=== PATIENT | female | born 1930 | race Caucasian/White ===

== ENCOUNTER 2017-09-10 10:15 | Inpatient (IN) ==
--- NOTE | 2017-09-10 10:34 | Emergency Department Note ---
Weakness HPI - General Chief complaint: Weakness Stated complaint: weakness, fatigue Time Seen by Provider: 09/10/17 10:26 Source: patient Mode of arrival: ambulatory Limitations: no limitations - History of Present Illness HPI Narrative: Approximately 1 hour prior to patient's arrival I received a phone call from patient's primary care provider, Dr. Escamilla, who reported that patient recently had received renal stents for kidney stones. He saw her last evening and did some workup. She was being seen for general sense of weakness and fatigue going on for days and mild shortness of breath. Creatinine became elevated at 2.2 with a in the ejection fraction of 20% where her normal was over 50%. BUN is 56. D-dimer was over 20. He reports that she has a previous history of pulmonary embolus that was after a surgery. She has some short of breath now. She recently had renal stents for stones. He is sending her here for to be seen. REVIEW OF SYSTEMS: Denies fever, chills, sweats Denies chest pain, palpitations Denies cough. Has had a little wheeze occasionally but had a recent pneumonia. Not much phlegm. Denies hemoptysis. Denies abdominal pain, nausea, vomiting. Denies back pain. Does have some low back achiness that is somewhat new. Denies rashes. Denies headaches. Is some lightheaded when gets up. Denies imbalance. Denies anxiety. Denies depression. - Related Data Home Medications Medication Instructions Recorded Confirmed Colesevelam HCl [Welchol] 625 mg PO TID 12/23/14 12/23/14 Unknown For Diabetic 08/17/17 Vitamin B-12 08/17/17 Citalopram [Celexa] 20 mg PO DAILY 09/10/17 09/10/17 Lovastatin 40 mg PO DAILY 09/10/17 09/10/17 Pioglitazone [Actos] 15 mg PO DAILY 09/10/17 09/10/17 Allergies Allergy/AdvReac Type Severity Reaction Status Date / Time ketorolac [From Toradol] Allergy Mild Hives Verified 09/10/17 10:19 Past Medical History - Past Medical History Medical history: Reports: DM, hyperlipidemia, hypertension, kidney stones, pulmonary embolus (Post surgery), other (Pneumonia. Glaucoma. Renal sclerosis. 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 Denies: marijuana Physical Exam Limitations: no limitations General appearance: alert, in no apparent distress, malaise (Mild) Head: atraumatic, normocephalic Eye: Present: EOMI ENT: mucous membranes dry Neck: Present: trachea midline. Absent: lymphadenopathy, thyromegaly Respiratory: Present: normal lung sounds bilaterally. Absent: respiratory distress, wheezes, stridor, accessory muscle use, prolonged expiratory phase Cardiovascular: Present: regular rate, normal rhythm. Absent: systolic murmur, diastolic murmur Abdominal: Present: soft. Absent: distention, tenderness, guarding, rebound, rigidity, organomegaly, mass Extremities: Absent: pedal edema, pretibial edema, calf tenderness Back: Absent: CVA tenderness (R), CVA tenderness (L) Neurological: Present: alert, oriented X3 Psychiatric: Present: normal affect, flat affect (Mild) Skin: Present: warm, dry Course Vital Signs Temperature 97.2 F 09/10/17 10:17 Pulse Rate 72 09/10/17 10:17 Respiratory Rate 14 09/10/17 10:17 Blood Pressure 104/67 09/10/17 10:17 Pulse Oximetry (%) 96 09/10/17 10:17 Temperature 97.2 F 09/10/17 10:17 Pulse Rate 72 09/10/17 14:31 Respiratory Rate 17 09/10/17 14:31 Blood Pressure 128/76 09/10/17 14:31 Pulse Oximetry (%) 99 09/10/17 14:31 Weakness - MDM Narrative Medical decision making narrative: Repeat labs demonstrate the creatinine to be 2.0. The BUN was 54. Calcium mildly elevated at 11.4. Bicarb was 20 anion gap of 15. D-dimer previously was 20. ECG demonstrates no acute ACS findings and troponin was negative. I discussed case with Dr. Jimenez who kindly accepts this admission for IV hydration, anticoagulation, and follow-up on her kidneys. We discussed that he would likely order an ultrasound to check for hydronephrosis because of the recent removal of stents, etc. Her usual urologist is Dr. Marvin in [facility]. She has a history of renal sclerosis per her old chart review and a ureteral stricture. - Lab Data Result diagrams: 09/10/17 10:46 09/10/17 10:46 Lab Results 09/10/17 09/10/17 09/10/17 Range/Units 10:46 10:46 10:46 WBC 7.2 (4.5-11.0) K/mcL RBC 4.29 (4.00-5.20) M/mcL Hgb 14.4 (12.0-15.0) g/dL Hct 43.1 (36.0-48.0) % MCV 100.5 H (80.0-100.0) fL MCH 33.5 (26.0-34.0) pg MCHC 33.4 (31.0-36.0) g/dL RDW 13.6 (11.5-14.5) % Plt Count 177 (140-440) K/mcL MPV 9.7 (7.4-10.4) fL Gran % 75.8 (38.0-78.0) % Lymph % (Auto) 14.7 L (15.5-49.0) % Piute % (Auto) 7.3 (1.0-12.0) % Eos % (Auto) 1.2 (0.0-7.0) % Baso % (Auto) 1.0 (0.0-2.0) % Gran # 5.4 (1.8-8.0) K/mcL Lymph # (Auto) 1.1 L (1.5-4.8) K/mcL Piute # (Auto) 0.5 (0.1-0.9) K/mcL Eos # (Auto) 0.1 (0.0-0.7) K/mcL Baso # (Auto) 0.1 (0.0-0.3) K/mcL PT 14.3 (11.9-14.5) sec INR 1.1 (0.9-1.1) Sodium 133 (133-145) mmol/L Potassium 5.1 (3.3-5.1) mmol/L Chloride 98 (96-108) mmol/L Carbon Dioxide 20 L (22-30) mmol/L Anion Gap 15.0 (8-16) BUN 54 H (8-23) mg/dl Creatinine 2.0 H (0.6-1.1) mg/dl GFR Calculation 22 Glucose 141 H (70-105) mg/dL Calcium 11.4 H (8.6-10.4) mg/dl Total Bilirubin 0.6 (0.0-1.0) mg/dL AST 21 (0-37) U/l ALT 12 (0-40) U/l Alkaline Phosphatase 61 (39-117) U/L Troponin T (0-0.03) ng/ml Total Protein 8.0 (5.9-8.4) gm/dL Albumin 4.5 (3.2-5.2) gm/dL Globulin 3.5 (2.2-3.7) gm/dL Albumin/Globulin Ratio 1.3 (1.0-2.3) 09/10/17 Range/Units 10:46 WBC (4.5-11.0) K/mcL RBC (4.00-5.20) M/mcL Hgb (12.0-15.0) g/dL Hct (36.0-48.0) % MCV (80.0-100.0) fL MCH (26.0-34.0) pg MCHC (31.0-36.0) g/dL RDW (11.5-14.5) % Plt Count (140-440) K/mcL MPV (7.4-10.4) fL Gran % (38.0-78.0) % Lymph % (Auto) (15.5-49.0) % Piute % (Auto) (1.0-12.0) % Eos % (Auto) (0.0-7.0) % Baso % (Auto) (0.0-2.0) % Gran # (1.8-8.0) K/mcL Lymph # (Auto) (1.5-4.8) K/mcL Piute # (Auto) (0.1-0.9) K/mcL Eos # (Auto) (0.0-0.7) K/mcL Baso # (Auto) (0.0-0.3) K/mcL PT (11.9-14.5) sec INR (0.9-1.1) Sodium (133-145) mmol/L Potassium (3.3-5.1) mmol/L Chloride (96-108) mmol/L Carbon Dioxide (22-30) mmol/L Anion Gap (8-16) BUN (8-23) mg/dl Creatinine (0.6-1.1) mg/dl GFR Calculation Glucose (70-105) mg/dL Calcium (8.6-10.4) mg/dl Total Bilirubin (0.0-1.0) mg/dL AST (0-37) U/l ALT (0-40) U/l Alkaline Phosphatase (39-117) U/L Troponin T < 0.01 (0-0.03) ng/ml Total Protein (5.9-8.4) gm/dL Albumin (3.2-5.2) gm/dL Globulin (2.2-3.7) gm/dL Albumin/Globulin Ratio (1.0-2.3) Disposition Pt seen by PASTE UP WORKER/PA only: No Clinical Impression: Elevated d-dimer, Hypercalcemia Acute renal failure (ARF) Qualifiers: Acute renal failure type: unspecified Qualified Code(s): N17.9 - Acute kidney failure, unspecified Disposition: Xfer As Inpt ([facility]) Condition: Fair Referrals: Toro Escamilla MD [Primary Care Provider] -
--- NOTE | 2017-09-10 11:02 | XRay Report ---
INDICATION: Weakness. Fatigue. TECHNIQUE: PA and lateral upright chest x-ray COMPARISON: Previous chest x-rays dated September 06, 2017 and July 23, 2017 FINDINGS:Mild linear density in the right middle lobe is again identified. This is unchanged since September 06, 2017 but new since July 23, 2017. Findings remain consistent with mild subsegmental atelectasis. Lungs are otherwise negative. No other focal pulmonary parenchymal infiltrate or mass. Heart size and vascularity are normal. No pulmonary edema. No pulmonary congestion. Ame and mediastinum are negative. No pleural fluid. Incidental note is made of mild eventration of the right hemidiaphragm No compression deformities. IMPRESSION: 1. Findings remain consistent with mild subsegmental atelectasis in the right middle lobe 2. No new abnormalities. No interval change since September 06, 2017 Interpreted and Authenticated by: Pascual Castillo 09/10/17
[2017-09-10 11:20] LABS: Basophils # (Auto) 0.1 K/mcL (0.0-0.3); Eosinophils # (Auto) 0.1 K/mcL (0.0-0.7); Eosinophils % (Auto) 1.2 % (0.0-7.0); Granulocytes % (Auto) 75.8 % (38.0-78.0); Lymphocytes # (Auto) 1.1 K/mcL (1.5-4.8); Lymphocytes % (Auto) 14.7 % (15.5-49.0); Mean Cell Volume 100.5 fL (80.0-100.0); Mean Corpuscular HGB Conc 33.4 g/dL (31.0-36.0); Mean Corpuscular Hemoglobin 33.5 pg (26.0-34.0); Monocytes # (Auto) 0.5 K/mcL (0.1-0.9); Monocytes % (Auto) 7.3 % (1.0-12.0); Platelet Count 177 K/mcL (140-440); RBC 4.29 M/mcL (4.00-5.20); Red Cell Distribution Width 13.6 % (11.5-14.5)
[2017-09-10 11:45] LABS: ALT/SGPT 12 U/l (0-40); Albumin 4.5 gm/dL (3.2-5.2); Albumin/Globulin Ratio 1.3 (1.0-2.3); Alkaline Phosphatase 61 U/L (39-117); Blood Urea Nitrogen 54 mg/dl (8-23)
--- NOTE | 2017-09-10 15:38 | Internal Med History&Physical ---
Medical - H&P: HPI Patient information: Note initiated : 09/10/17 at 3:33 pm Service Date, if different from initiated Date: [] Patient: Roma Guy 87 y/o F admitted on for weakness, fatigue. Chief Complaint: [] History of present illness: Ms. Guy is a 87 year old Female with h/o renal stones and PE presents to the emergency room after being sent here by her primary care provider for evaluation of acute renal failure as well as elevated d-dimer. The patient notes that she was diagnosed with pneumonia somewhere around July, afterwards she developed some kidney stones and they were treated by lithotripsy by Dr. Marvin and [place]. The patient developed hydronephrosis subsequently and needed to have stents placed. The patient had the stents extracted approximately a week ago. She was on antibiotics I believe Bactrim up until a few days ago. After removal of stents the patient has not been feeling well, she notes that she has been feeling weak tired. She is fatigued and unable to do activities of daily living. She notes that she is able to complete some activities like bathing however they put a lot of strain on her. She feels like she has the same feelings she had when she developed a pulmonary embolism a few years ago. With the symptoms she was seen by her primary care provider who ordered labs for her, the labs done yesterday show sodium 138, potassium 5.8, BUN 56, creatinine 2.2, calcium 11.3. The d-dimer was elevated at more than 20. The patient was asked to come to the ER for further evaluation. In the ER patient was accompanied by her daughter, she was hemodynamically stable vital signs did not show any tachycardia or increased oxygen requirements. She denied any leg pain. She had repeat workup done which showed normal WBC count at 7.2, hemoglobin 14, platelet 177, potassium is 5.1, sodium 133, bicarbonate 20, BUN 54, creatinine 2.0. Calcium elevated at 11.4. INR is 1.1 and prothrombin time is 14.3. Given her elevated creatinine as well as suspicion for pulmonary embolism. Patient was admitted to the hospital for further management. We are unable to do a CT angios at this point in time because the patient is in acute failure. The patient notes she drinks enough water however her daughter reports that she does not, patient denies any diarrhea nausea or vomiting. She notes that she may not have been eating well for the last week or so. A 10 point review of system was done positive as above is negative All systems: reviewed and no additional remarkable complaints except as stated ( as per HPI) Medical - H&P: PMH Medical history: Medical History Pulmonary embolism (Acute) DM Renal Stones HLD Surgical history: lithotripsy Pertinent family history: Mother from pulmonary embolism, Brother had colon cancer and prostate cancer Lung cancer in sister Social history: Denies any smoking, alcohol use or recreational drug use Medical - H&P: Meds Home Medications Medication Instructions Recorded Confirmed Type Colesevelam HCl [Welchol] 625 mg PO TID 12/23/14 12/23/14 History Unknown For Diabetic 08/17/17 History Vitamin B-12 08/17/17 History Citalopram [Celexa] 20 mg PO DAILY 09/10/17 09/10/17 History Lovastatin 40 mg PO DAILY 09/10/17 09/10/17 History Pioglitazone [Actos] 15 mg PO DAILY 09/10/17 09/10/17 History Allergies Allergy/AdvReac Type Severity Reaction Status Date / Time ketorolac [From Toradol] Allergy Mild Hives Verified 09/10/17 10:19 Medical - H&P: Exam - Constitutional Vitals: Temp Pulse Resp BP Pulse Ox 97.2 F 74 15 142/73 100 09/10/17 10:17 09/10/17 15:16 09/10/17 15:16 09/10/17 15:16 09/10/17 15:16 Exam: GENERAL: The patient is a well-developed, well-nourished in no apparent distress. Is alert and oriented x3. VITAL SIGNS: Reviewed and as noted elsewhere. HEENT: Head is normocephalic and atraumatic. Extraocular muscles are intact. Pupils are equal, round, and reactive to light. Nares appeared normal. Mouth appears any without lesions. Mucous membranes are dry. NECK: Normal to inspection, Supple, No lymphadenopathy or thyromegaly. LUNGS: Air entry equal on both sides, no wheezing, crackles or rhonchi noted. No accessory muscles of respiration HEART: Regular rate and rhythm normal, S1 and S2 heard, no Gallop, S3 or Rub Noted, No Gross murmur heard. ABDOMEN: Soft, nontender, and nondistended. Positive bowel sounds. No hepatosplenomegaly was noted. EXTREMITIES: No cyanosis, clubbing, rash, lesions or edema. NEUROLOGIC: Cranial nerves II through XII are grossly intact. Motor and Sensory System Grossly Intact PSYCHIATRIC: Normal affect, Normal Mood. Appropriate Behavior. SKIN: No ulceration or wounds noted, No jaundice, No rash noted. Medical - H&P: Reslt - Labs CBC & Chem 7: 09/10/17 10:46 09/10/17 10:46 Labs: Short CBC 09/10/17 Range/Units 10:46 WBC 7.2 (4.5-11.0) K/mcL Hgb 14.4 (12.0-15.0) g/dL Hct 43.1 (36.0-48.0) % Plt Count 177 (140-440) K/mcL BMP 09/10/17 10:46 Sodium 133 Potassium 5.1 Chloride 98 Carbon Dioxide 20 L BUN 54 H Creatinine 2.0 H Glucose 141 H Calcium 11.4 H Cardiac Enzymes 09/10/17 Range/Units 10:46 Troponin T < 0.01 (0-0.03) ng/ml Liver Function 09/10/17 Range/Units 10:46 Total Bilirubin 0.6 (0.0-1.0) mg/dL AST 21 (0-37) U/l ALT 12 (0-40) U/l Alkaline Phosphatase 61 (39-117) U/L Albumin 4.5 (3.2-5.2) gm/dL Medical - H&P: A/P - Narrative A/P Narrative: A/P Acute Pulmonary Embolism: High suspicion given elevated D dimer, h/o same in past and patient having sob on exertion. Plan to start anticoagulation, check duplex for DVT, correct renal dysfunction and then get CTA. Pt agrees with the plan of care. Pt will be monitored on telemetery. Acute renal failure: etiology? was on Bactrim, could be related to same (false elevation of creat) but also poor oral intake, bun is also high, IV fluids for now, urine studies pending, get renal sonogram, to evaluate for hydronephrosis, linda in light of renal stones and recent removal of stents Hyperkalemia noted on yesterdays labs resolved Hypercalcemia: likely secondary to dehydration, if persists, will intiate workup DM/HLD: HOld actos for now, resume statin. monitor, ssi for glucose control DVT on lovenox Full code Regular diet.
[2017-09-10 15:50] LABS: Appearance,Urine CLOUDY; Bacteria,Urine 0 /hpf (0); Bilirubin,Urine NEG (NEG); Color,Urine YELLOW; Glucose,Urine (UA) NEGATIVE (NEG); Leukocyte Esterase,Urine 500 /uL (NEG); Mucus,Urine MOD /hpf (0); Protein,Urine 30 mg/dL (NEG); Specific Gravity,Urine 1.018 (1.000-1.035); Urine Blood >=1.0 mg/dL (<0.03); Urine Hyaline Cast 21 /lpf (0-2); Urine RBC > 182 /hpf (0-1); Urine Squamous Epithelial Cell 8 /hpf (0-4); Urine WBC > 182 /hpf (0-4); Urobilinogen,Urine NEG (NEG)
[2017-09-10] MEDS ORDERED: HYDROcodone/APAP 5/325MG TABLET PO PRN (16:16)
[2017-09-10] MEDS ORDERED: NALOXONE HCL 0.4 MG/ML VIAL IV PRN (16:16)
[2017-09-10] MEDS ORDERED: ONDANSETRON 4 MG/2 ML VIAL IV PRN (16:16)
[2017-09-10] MEDS ORDERED: ACETAMINOPHEN 325 MG TABLET PO PRN (16:16)
[2017-09-10] MEDS: 0.9 % SODIUM CHLORIDE 1,000 ML IV SCH ×2 (16:44→23:11)
[2017-09-10] MEDS: ENOXAPARIN 80 MG/0.8 ML SYRINGE SQ SCH (16:45)
--- NOTE | 2017-09-10 18:23 | Ultrasound Report ---
CLINICAL INFORMATION: Leg pain and swelling. Elevated d-dimer. TECHNIQUE: Grayscale and color flow Doppler spectral imaging COMPARISON: None. FINDINGS: Negative examination for deep venous thrombosis. Common femoral veins, superficial femoral veins, popliteal veins are negative bilaterally. Calf veins are negative. Greater and lesser saphenous veins are negative IMPRESSION: 1. Negative bilateral lower extremity deep venous ultrasound 2. No deep venous thrombosis Interpreted and Authenticated by: Pascual Castillo 09/10/17
--- NOTE | 2017-09-10 18:27 | Ultrasound Report ---
CLINICAL INFORMATION: History of urolithiasis. Previous ureteral stent removal TECHNIQUE: Bennett scale and color flow Doppler spectral imaging COMPARISON: CT scan dated October 15, 2016 FINDINGS: Right kidney measures 10.4 x 5.9 x 4.8 cm. Right renal cortex appears thinned. There is a 1.1 cm nonobstructing calculus in the right lower pole. There is [id number] right hydronephrosis. No solid mass. Left kidney measures 12.2 x 8.5 x 6.6 cm. No detectable calculi. Left renal cortex is thinned. There is moderate to severe left hydronephrosis. No solid mass. Urinary bladder measures 132 mL. No bladder calculus. Ureteral jets are not identified. IMPRESSION: 1. Mild to moderate right hydronephrosis 2. Moderate to severe left hydronephrosis 3. 1.1 cm nonobstructing right lower pole calculus Interpreted and Authenticated by: Pascual Castillo 09/10/17
[2017-09-10] MEDS ORDERED: SIMVASTATIN 20 MG TABLET PO SCH (21:00)
[2017-09-10] MEDS: 0.9 % SODIUM CHLORIDE 10 ML SYRINGE IV SCH (21:20)
[2017-09-10] MEDS: POTASSIUM CITRATE 10 MEQ TAB.XL.24H PO SCH (21:34)
[2017-09-11 05:28] LABS: Basophils # (Auto) 0.1 K/mcL (0.0-0.3); Eosinophils # (Auto) 0.1 K/mcL (0.0-0.7); Eosinophils % (Auto) 2.3 % (0.0-7.0); Granulocytes % (Auto) 58.5 % (38.0-78.0); Lymphocytes # (Auto) 1.7 K/mcL (1.5-4.8); Lymphocytes % (Auto) 29.4 % (15.5-49.0); Mean Cell Volume 100.8 fL (80.0-100.0); Mean Corpuscular HGB Conc 33.1 g/dL (31.0-36.0); Mean Corpuscular Hemoglobin 33.3 pg (26.0-34.0); Monocytes # (Auto) 0.5 K/mcL (0.1-0.9); Monocytes % (Auto) 8.8 % (1.0-12.0); Platelet Count 146 K/mcL (140-440); RBC 3.81 M/mcL (4.00-5.20); Red Cell Distribution Width 13.6 % (11.5-14.5)
[2017-09-11] MEDS: 0.9 % SODIUM CHLORIDE 10 ML SYRINGE IV SCH ×3 (05:28→21:08)
[2017-09-11] MEDS: 0.9 % SODIUM CHLORIDE 1,000 ML IV SCH (06:05)
[2017-09-11 06:14] LABS: ALT/SGPT 10 U/l (0-40); Albumin 3.7 gm/dL (3.2-5.2); Albumin/Globulin Ratio 1.3 (1.0-2.3); Alkaline Phosphatase 54 U/L (39-117); Bilirubin,Direct < 0.2 mg/dL (0.0-0.3); Blood Urea Nitrogen 45 mg/dl (8-23); Gamma Glutamyl Transpeptidase 43 U/L (5-36)
--- NOTE | 2017-09-11 08:32 | XRay Report ---
CLINICAL INFORMATION: History of urolithiasis TECHNIQUE: AP supine portable abdomen COMPARISON: Previous examination dated May 07, 2017 FINDINGS: Right-sided renal calculi are not identified on present examination. No renal or ureteral calculi identified. No bladder stone. Bowel gas pattern is unremarkable. No mechanical small bowel obstruction. Ptosis. IMPRESSION: Negative supine abdomen Interpreted and Authenticated by: Pascual Castillo 09/11/17
--- NOTE | 2017-09-11 08:39 | XRay Report ---
INDICATION: Weakness. Fatigue. TECHNIQUE: AP chest x-ray,portable semiupright COMPARISON: Chest x-rays dated September 10, 2017, September 06, 2017 FINDINGS:Minimal linear density at the right lung base consistent with subsegmental atelectasis or scarring. Lungs are otherwise negative. No parenchymal infiltrate or mass. Heart size and vascularity are normal. No pulmonary edema. No pulmonary congestion. IMPRESSION: 1. Mild linear density at the right lung base 2. Otherwise negative chest x-ray. No interval change Interpreted and Authenticated by: Pascual Castillo 09/11/17
[2017-09-11] MEDS ORDERED: LOVASTATIN 40 MG PO SCH (09:00)
[2017-09-11] MEDS ORDERED: CITALOPRAM 20 MG TABLET PO SCH (09:00)
[2017-09-11 10:00] LABS: Appearance,Urine HAZY; Bacteria,Urine 0 /hpf (0); Bilirubin,Urine NEG (NEG); Color,Urine YELLOW; Glucose,Urine (UA) NEGATIVE (NEG); Leukocyte Esterase,Urine 75 /uL (NEG); Mucus,Urine FEW /hpf (0); Protein,Urine 30 mg/dL (NEG); Specific Gravity,Urine 1.015 (1.000-1.035); Urine Blood >=1.0 mg/dL (<0.03); Urine RBC > 182 /hpf (0-1); Urine Squamous Epithelial Cell 0 /hpf (0-4); Urine WBC 40 /hpf (0-4); Urobilinogen,Urine NEG (NEG)
[2017-09-11] MEDS: POTASSIUM CITRATE 10 MEQ TAB.XL.24H PO SCH ×2 (10:18→18:16)
[2017-09-11] MEDS: ENOXAPARIN 80 MG/0.8 ML SYRINGE SQ SCH (10:18)
--- NOTE | 2017-09-11 12:09 | Internal Med Progress Note ---
Medical - PN: Subj Patient information: Note initiated : 09/11/17 at 12:07 pm Service Date, if different from initiated Date: [] Patient: Roma Guy 87 y/o F admitted on 09/10/17 for Weakness, Fatigue/ Pulmonary Embolism. Chief Complaint: [] Interval history: Ms. Guy is a 87 year old Female with h/o renal stones and PE presents to the emergency room after being sent here by her primary care provider for evaluation of acute renal failure as well as elevated d-dimer. The patient notes that she was diagnosed with pneumonia somewhere around July, afterwards she developed some kidney stones and they were treated by lithotripsy by Dr. Marvin and Erwin. The patient developed hydronephrosis subsequently and needed to have stents placed. The patient had the stents extracted approximately a week ago. She was on antibiotics I believe Bactrim up until a few days ago. After removal of stents the patient has not been feeling well, she notes that she has been feeling weak tired. She is fatigued and unable to do activities of daily living. She notes that she is able to complete some activities like bathing however they put a lot of strain on her. She feels like she has the same feelings she had when she developed a pulmonary embolism a few years ago. With the symptoms she was seen by her primary care provider who ordered labs for her, the labs done yesterday show sodium 138, potassium 5.8, BUN 56, creatinine 2.2, calcium 11.3. The d-dimer was elevated at more than 20. The patient was asked to come to the ER for further evaluation. In the ER patient was accompanied by her daughter, she was hemodynamically stable vital signs did not show any tachycardia or increased oxygen requirements. She denied any leg pain. She had repeat workup done which showed normal WBC count at 7.2, hemoglobin 14, platelet 177, potassium is 5.1, sodium 133, bicarbonate 20, BUN 54, creatinine 2.0. Calcium elevated at 11.4. INR is 1.1 and prothrombin time is 14.3. Given her elevated creatinine as well as suspicion for pulmonary embolism. Patient was admitted to the hospital for further management. We are unable to do a CT angios at this point in time because the patient is in acute failure. The patient notes she drinks enough water however her daughter reports that she does not, patient denies any diarrhea nausea or vomiting. She notes that she may not have been eating well for the last week or so. 09/11 Patient seen and examined, no acute overnight events. Did not sleep well last night usually takes NyQuil at bedtime. The patient this morning has no complaints or concerns. I reviewed the DVT ultrasound with her which is negative. Renal ultrasound shows mild to moderate hydronephrosis on the right side and moderate to severe hydronephrosis in the left side. I reviewed the case with Dr. Thomas who will see the patient plan for VQ scan today labs stable otherwise Pertinent ROS: Denies headache, dizziness Denies chest pain, palpitations Denies cough or shortness of breath Denies abdominal pain, nausea or vomiting. - Constitutional Vitals: Vital Signs Temp Pulse Resp BP Pulse Ox 97.9 F 69 16 119/68 96 09/11/17 08:00 09/11/17 11:54 09/11/17 08:00 09/11/17 11:54 09/11/17 11:54 Period Temp Pulse Resp BP Sys/Hernandez Pulse Ox Last 24 Hr 97.1 F-98.4 F 66-87 14-23 102-179/56-86 93-100 Intake and Output 09/10/17 09/11/17 09/11/17 21:59 05:59 13:59 Intake Total 1967 340 / 340 Output Total 525 / 525 250 / 250 Balance -525 / -525 1717 135 / 135 Weight 163 lb 9.6 oz 163 lb 9.6 oz Patient Weight 09/12/17 05:59 Weight 163 lb 9.6 oz Intake & Output: Intake & Output 09/10/17 09/11/17 09/11/17 21:59 05:59 13:59 Intake Total 1967 340 / 340 Output Total 525 / 525 250 / 250 Balance -525 / -525 1717 135 / 135 Weight 163 lb 9.6 oz 163 lb 9.6 oz Intake: IV 1967 Sodium Chloride 0.9% 1,000 ml @ 1967 150 mls/hr IV .Q6H40M [facility] Rx#: [id number] Oral 340 / 340 Output: Void Amount 525 / 525 250 / 250 Other: Meal Breakfast Percent of Meal Consumed 100% Feeding Ability Assist with Tray Set Up Stool Size Moderate Stool Color Brown Yellow Stool Consistency Soft Liquid Exam: Constitutional; Afebrile, cooperative, alert, not in distress. Eyes- No icterus, , No periorbital swelling Ears- Ext ear normal, hearing normal to conversation. Neck- Midline trachea, supple Respiratory system: Air Entry equal on both sides, No crackles or wheezing, no rhonchi. CVS- Rate rhythm regular, S1,S2 heard, no gallop, no rub. 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 Medical - PN: Obj Da - Labs CBC & Chem 7: 09/11/17 03:50 09/11/17 03:50 Labs: Abnormal Lab Results 09/11/17 09/11/17 09/11/17 08:30 08:30 03:50 RBC MCV Lymph % (Auto) Lymph # (Auto) Carbon Dioxide 20 L BUN 45 H Creatinine 1.6 H Glucose Calcium GGT 43 H Triglycerides 230 H Urine Protein 30 A Urine Occult Blood >=1.0 A Ur Leukocyte Esterase 75 A Urine RBC > 182 H Urine WBC 40 H Ur Squamous Epith Cells Hyaline Casts U [place] Prot/Creat Ratio 0.28 H 09/11/17 09/10/17 09/10/17 03:50 12:08 10:46 RBC 3.81 L MCV 100.8 H Lymph % (Auto) Lymph # (Auto) Carbon Dioxide 20 L BUN 54 H Creatinine 2.0 H Glucose 141 H Calcium 11.4 H GGT Triglycerides Urine Protein 30 A Urine Occult Blood >=1.0 A Ur Leukocyte Esterase 500 A Urine RBC > 182 H Urine WBC > 182 H Ur Squamous Epith Cells 8 H Hyaline Casts 21 H U [place] Prot/Creat Ratio 09/10/17 10:46 RBC MCV 100.5 H Lymph % (Auto) 14.7 L Lymph # (Auto) 1.1 L Carbon Dioxide BUN Creatinine Glucose Calcium GGT Triglycerides Urine Protein Urine Occult Blood Ur Leukocyte Esterase Urine RBC Urine WBC Ur Squamous Epith Cells Hyaline Casts U [place] Prot/Creat Ratio Meds: Medications Acetaminophen (Tylenol) 650 mg PO Q6HP PRN PRN Reason: PAIN/FEVER > 101 Acetaminophen (Tylenol) 650 mg PO HS L[place]ISE Hydrocodone Bitart/Acetaminophen ([place] 5/325mg) 1 tab PO Q4HP PRN PRN Reason: PAIN LEVEL 3-6 Citalopram Hydrobromide (Celexa) 20 mg PO DAILY [facility] Last Admin: 09/11/17 10:18 Dose: 20 mg Diphenhydramine HCl (Benadryl) 50 mg PO HS [facility] Enoxaparin Sodium (Lovenox) 80 mg SQ DAILY [facility] Last Admin: 09/11/17 10:18 Dose: 80 mg Sodium Chloride (Sodium Chloride 0.9%) 1,000 mls @ 150 mls/hr IV .Q6H40M [facility] Stop: 09/11/17 12:15 Last Admin: 09/11/17 06:05 Dose: 150 mls/hr Naloxone HCl (Narcan) 0.1 mg IV Q2MIN PRN PRN Reason: Opiate Reversal Ondansetron HCl (Zofran) 4 mg IV Q4HP PRN PRN Reason: Nausea And Vomiting Potassium Citrate (Potassium Citrate) 10 meq PO BIDCC [facility] Last Admin: 09/11/17 10:18 Dose: 10 meq Simvastatin (Zocor) 20 mg PO HS [facility] Last Admin: 09/10/17 21:34 Dose: 20 mg Sodium Chloride (Saline Flush) 10 ml IV Q8 [facility] Last Admin: 09/11/17 05:28 Dose: Not Given Medical - PN: A/P - Time Spent With Patient Total time spent is greater than 50% in coordination of care (as documented) at patient's floor/unit and/or counseling patient: - Narrative A/P Narrative: A/P Acute Pulmonary Embolism: High suspicion given elevated D dimer, dvt neg, get vq scan, continue lovenox for now Acute renal failure: etiology? usg shows aneudy hydronephrosis, Urolgoy consulted, will place ding. Hyperkalemia noted on yesterdays labs resolved Hypercalcemia: limproved with hydration. DM/HLD: HOld actos for now, resume statin. monitor, ssi for glucose control DVT on lovenox Full code dysphagia 3 diet, Dietian noted that pt has some issue swallowing, will get ST eval Medical - PN: Qual - Stroke Symptom Onset Unknown: No - VTE Deep Vein Thrombosis/Pulmonary Embolism Present on Admission: No
--- NOTE | 2017-09-11 13:14 | Consultation ---
DATE OF CONSULTATION: 09/10/2017 HISTORY OF PRESENT ILLNESS: The patient is an 87-year-old lady with a history of renal stones. Recently she saw Dr. Marvin up in [place] where ureteroscopy was performed bilaterally and stents were placed. Last Saturday she accidentally removed the stents and did see Dr. Marvin. At that point she was feeling okay. She did have a decrease in energy, feeling weak and tired, fatigued. She was seen in the emergency room and her creatinine was 2.2 and upon admission the hospital was 2.0. Recently it has gone down to 1.6. An ultrasound was obtained which did show bilateral hydronephrosis. She does have an atrophic right kidney with questionable stone. The left side is normal. I did obtain a KUB and no stones were seen. 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 I have been asked to evaluate her for the hydronephrosis seen on ultrasound. PAST MEDICAL HISTORY: Pulmonary embolus, diabetes, renal stones, hypertension. PAST SURGICAL HISTORY: Lithotripsy and ureteroscopy. FAMILY HISTORY: Noncontributory. SOCIAL HISTORY: Does not smoke or drink. CURRENT MEDICATIONS: 1. Welchol. 2. Celexa. 3. Lovastatin. 4. Actos. ALLERGIES: TORADOL. REVIEW OF SYSTEMS: CARDIAC: Denies any chest pain. RESPIRATORY: No wheezing, coughing, or asthma. PSYCHOLOGICAL: No depression or mood swings. The rest of a 12-point review of systems is negative. PHYSICAL EXAMINATION: GENERAL: This is a very pleasant lady in no apparent distress, alert and oriented x3. HEENT: Atraumatic, normocephalic. Extraocular movements are intact. Pupils are equal, reactive to light and accommodation. NECK: Supple. Trachea is in the midline. HEART: Regular rate and rhythm. LUNGS: Clear to auscultation. ABDOMEN: Soft, nontender, no CVA tenderness. GENITOURINARY: Deferred. EXTREMITIES: Without clubbing, cyanosis or edema. NEUROLOGIC: II-XII grossly intact. IMPRESSION: Patient with hydronephrosis. This may be a result from the ureteroscopy. Her creatinine is improving, so I feel that we can watch this. She does have an atrophic kidney and nothing needs to be done about this. KUB did not show any obvious stones, although they may have missed the stones. I feel at this point we should give this time-I would follow her through the day and check a creatinine in the morning. If this is lower then I do not think stents are indicated, but if her creatinine is still elevated, then I would proceed with bilateral stent placement. I have gone over this with the patient and she understands and I have answered all her questions. [email or web address] Job ID: [id number] Doc ID: [id number] Elier Thomas MD
[2017-09-11] MEDS ORDERED: NALOXONE HCL 0.4 MG/ML VIAL IV PRN (17:13)
[2017-09-11] MEDS ORDERED: ONDANSETRON 4 MG/2 ML VIAL IV PRN (17:13)
[2017-09-11] MEDS ORDERED: HYDROcodone/APAP 5/325MG TABLET PO PRN (17:13)
[2017-09-11] MEDS ORDERED: ACETAMINOPHEN 325 MG TABLET PO PRN (17:13)
[2017-09-11] MEDS ORDERED: SIMVASTATIN 20 MG TABLET PO SCH (21:00)
[2017-09-11] MEDS ORDERED: ACETAMINOPHEN 325 MG TABLET PO SCH ×2 (21:00)
[2017-09-11] MEDS ORDERED: diphenhydrAMINE 25 MG CAPSULE PO SCH ×2 (21:00)
[2017-09-12 02:04] LABS: Blood Urea Nitrogen 35 mg/dl (8-23)
[2017-09-12] MEDS: 0.9 % SODIUM CHLORIDE 10 ML SYRINGE IV SCH (05:53)
[2017-09-12 06:34] LABS: Basophils # (Auto) 0.1 K/mcL (0.0-0.3); Basophils % (Auto) 1.2 % (0.0-2.0); Eosinophils # (Auto) 0.2 K/mcL (0.0-0.7); Eosinophils % (Auto) 3.3 % (0.0-7.0); Granulocytes % (Auto) 55.5 % (38.0-78.0); Lymphocytes # (Auto) 1.4 K/mcL (1.5-4.8); Mean Cell Volume 100.7 fL (80.0-100.0); Mean Corpuscular HGB Conc 33.7 g/dL (31.0-36.0); Mean Corpuscular Hemoglobin 33.9 pg (26.0-34.0); Monocytes # (Auto) 0.5 K/mcL (0.1-0.9); Platelet Count 139 K/mcL (140-440); RBC 3.64 M/mcL (4.00-5.20); Red Cell Distribution Width 13.9 % (11.5-14.5)
[2017-09-12 06:35] LABS: ALT/SGPT 9 U/l (0-40); Albumin 3.6 gm/dL (3.2-5.2); Albumin/Globulin Ratio 1.3 (1.0-2.3); Alkaline Phosphatase 46 U/L (39-117); Bilirubin,Direct < 0.2 mg/dL (0.0-0.3); Blood Urea Nitrogen 32 mg/dl (8-23); Gamma Glutamyl Transpeptidase 39 U/L (5-36); Uric Acid 6.5 mg/dL (2.5-8.0)
--- NOTE | 2017-09-12 06:56 | General Surgery Progress Note ---
Subjective Patient reports: feels better Narrative: Note initiated : 09/12/17 at 6:54 am Service Date, if different from initiated Date: [] Patient: Roma Guy 87 y/o F admitted on 09/10/17 for Weakness, Fatigue/ Pulmonary Embolism. Chief Complaint: [] Creatinine improved to 1.2. Feeling better. no surgery planned. Hydronephrosis secondary to ureteroscopy. no rx needed. can d/c per hospitalist. n F/u with Dr. Marvin or myself. 15 minutes spent in discussion with patient Objective Temp Pulse Resp BP Pulse Ox 97.7 F 70 18 137/70 93 09/12/17 04:00 09/12/17 04:00 09/12/17 04:00 09/12/17 04:00 09/12/17 04:00 - Additional Data Intake & Output - Last 24 hours: Intake & Output 09/10/17 09/11/17 09/12/17 09/13/17 05:59 05:59 05:59 05:59 Intake Total 1967 / 1967 1760 / 1760 Output Total 775 / 775 1305 / 1305 Balance 1193 / 1193 455 / 455 Weight 163 lb 9.6 oz 166 lb 8 oz - Labs 09/12/17 04:05 09/12/17 04:05 Diabetes panel 09/12/17 09/12/17 Range/Units 00:20 04:05 Sodium 137 137 (133-145) mmol/L Potassium 4.8 4.5 (3.3-5.1) mmol/L Chloride 104 105 (96-108) mmol/L Carbon Dioxide 22 21 L (22-30) mmol/L BUN 35 H 32 H (8-23) mg/dl Creatinine 1.4 H 1.2 H (0.6-1.1) mg/dl Glucose 106 H 98 (70-105) mg/dL Calcium 9.6 9.6 (8.6-10.4) mg/dl AST 18 (0-37) U/l ALT 9 (0-40) U/l Alkaline Phosphatase 46 (39-117) U/L Total Protein 6.3 (5.9-8.4) gm/dL Albumin 3.6 (3.2-5.2) gm/dL Triglycerides 223 H (<150) mg/dl Calcium panel 09/12/17 09/12/17 Range/Units 00:20 04:05 Calcium 9.6 9.6 (8.6-10.4) mg/dl Phosphorus 3.2 (2.7-4.5) mg/dL Albumin 3.6 (3.2-5.2) gm/dL Pituitary panel 09/12/17 09/12/17 Range/Units 00:20 04:05 Sodium 137 137 (133-145) mmol/L Potassium 4.8 4.5 (3.3-5.1) mmol/L Chloride 104 105 (96-108) mmol/L Carbon Dioxide 22 21 L (22-30) mmol/L BUN 35 H 32 H (8-23) mg/dl Creatinine 1.4 H 1.2 H (0.6-1.1) mg/dl Glucose 106 H 98 (70-105) mg/dL Calcium 9.6 9.6 (8.6-10.4) mg/dl Adrenal panel 09/12/17 09/12/17 Range/Units 00:20 04:05 Sodium 137 137 (133-145) mmol/L Potassium 4.8 4.5 (3.3-5.1) mmol/L Chloride 104 105 (96-108) mmol/L Carbon Dioxide 22 21 L (22-30) mmol/L BUN 35 H 32 H (8-23) mg/dl Creatinine 1.4 H 1.2 H (0.6-1.1) mg/dl Glucose 106 H 98 (70-105) mg/dL Calcium 9.6 9.6 (8.6-10.4) mg/dl Total Bilirubin 0.4 (0.0-1.0) mg/dL AST 18 (0-37) U/l ALT 9 (0-40) U/l Alkaline Phosphatase 46 (39-117) U/L Total Protein 6.3 (5.9-8.4) gm/dL Albumin 3.6 (3.2-5.2) gm/dL Assessment and Plan - Time Spent With Patient Total time spent is greater than 50% in coordination of care (as documented) at patient's floor/unit and/or counseling patient:
[2017-09-12] MEDS: POTASSIUM CITRATE 10 MEQ TAB.XL.24H PO SCH (08:59)
[2017-09-12] MEDS ORDERED: HEPARIN 5,000 UNIT/ML VIAL SQ SCH ×2 (09:00)
[2017-09-12] MEDS ORDERED: CITALOPRAM 20 MG TABLET PO SCH (09:00)
--- NOTE | 2017-09-12 12:50 | Discharge Summary ---
Medical - DS: Prov Patient information: Note initiated : 09/12/17 at 12:48 pm Service Date, if different from initiated Date: [] Patient: Roma Guy 87 y/o F admitted on 09/10/17 for Weakness, Fatigue/ Pulmonary Embolism. Chief Complaint: [] Date of admission: 09/10/17 16:10 Discharge date: 09/12/17 Primary care physician: Toro Escamilla Admitting clinician: Nitza Jimenez Consults: 09/11/17 07:35 Consult to Physician [CONS] Routine Comment: Consulting Provider: Elier Thomas Reason For Exam: Physician to Consult Discharging clinician: Nitza Jimenez Medical - DS: Meds - Discharge Medications Prescriptions: Cefuroxime [Ceftin] 500 mg PO Q12 #10 tab Active and Home Medications: Home Medications Citalopram [Celexa] 20 mg PO DAILY 09/10/17 [History Confirmed 09/10/17 Last Taken Unknown] Lovastatin 40 mg PO DAILY 09/10/17 [History Confirmed 09/10/17 Last Taken Unknown] Pioglitazone [Actos] 15 mg PO DAILY 09/10/17 [History Confirmed 09/10/17 Last Taken Unknown] Potassium Citrate/Citric Acid [Pot Citrate-Citric Acid Packet] 1,620 mg PO BID 09/10/17 [History Confirmed 09/10/17 Last Taken Unknown] Medical - DS: Hosp Hospital course: Ms. Guy is a 87 year old Female with h/o renal stones and PE presents to the emergency room after being sent here by her primary care provider for evaluation of acute renal failure as well as elevated d-dimer. The patient notes that she was diagnosed with pneumonia somewhere around July, afterwards she developed some kidney stones and they were treated by lithotripsy by Dr. Marvin and Erwin. The patient developed hydronephrosis subsequently and needed to have stents placed. The patient had the stents extracted approximately a week ago. She was on antibiotics I believe Bactrim up until a few days ago. After removal of stents the patient has not been feeling well, she notes that she has been feeling weak tired. She is fatigued and unable to do activities of daily living. She notes that she is able to complete some activities like bathing however they put a lot of strain on her. She feels like she has the same feelings she had when she developed a pulmonary embolism a few years ago. With the symptoms she was seen by her primary care provider who ordered labs for her, the labs done yesterday show sodium 138, potassium 5.8, BUN 56, creatinine 2.2, calcium 11.3. The d-dimer was elevated at more than 20. The patient was asked to come to the ER for further evaluation. In the ER patient was accompanied by her daughter, she was hemodynamically stable vital signs did not show any tachycardia or increased oxygen requirements. She denied any leg pain. She had repeat workup done which showed normal WBC count at 7.2, hemoglobin 14, platelet 177, potassium is 5.1, sodium 133, bicarbonate 20, BUN 54, creatinine 2.0. Calcium elevated at 11.4. INR is 1.1 and prothrombin time is 14.3. Given her elevated creatinine as well as suspicion for pulmonary embolism. Patient was admitted to the hospital for further management. We are unable to do a CT angios at this point in time because the patient is in acute failure. The patient notes she drinks enough water however her daughter reports that she does not, patient denies any diarrhea nausea or vomiting. She notes that she may not have been eating well for the last week or so. 09/11 Patient seen and examined, no acute overnight events. Did not sleep well last night usually takes NyQuil at bedtime. The patient this morning has no complaints or concerns. I reviewed the DVT ultrasound with her which is negative. Renal ultrasound shows mild to moderate hydronephrosis on the right side and moderate to severe hydronephrosis in the left side. I reviewed the case with Dr. Thmoas who will see the patient plan for VQ scan today labs stable otherwise 09/12 Pt seen examined, no acut issues or events feels as if she has improved significantly wishes to go home. VQ scan is neg for PE, lovenox is discontinued, Renal function continues to improve, creat today is 1.[address] Thomas, reviewed imaging, no need for stent placement, can follow up as outpatient given that she had abnl ua, I will give her oral abx for 5 days. The rest of the stay in the hospital was uneventful Pt discharged home with family Discharge diagnosis: UTI, REnal failure, Fatigue. - Time Spent with Patient Total time spent providing and/or coordinating discharge services: Greater than 30 minutes Medical - DS: Exam - Constitutional Vitals: Vital Signs Temp Pulse Resp BP BP Pulse Ox 09/12/17 12:00 98.2 F 71 18 135/69 93 09/12/17 07:20 98.0 F 75 18 137/67 93 09/12/17 04:00 97.7 F 70 18 137/70 93 09/12/17 00:00 97.5 F 77 18 134/71 94 09/11/17 20:00 98.0 F 74 20 144/68 97 09/11/17 15:16 98.7 F 121/54 98 09/11/17 15:02 107/54 98 09/11/17 14:47 133/51 95 09/11/17 14:32 130/63 95 Intake and Output 09/11/17 09/12/17 09/12/17 21:59 05:59 13:59 Intake Total 180 / 180 600 / 600 Output Total 350 / 350 750 / 750 400 / 400 Balance -350 / -350 -570 / -570 200 / 200 Intake: Oral 180 / 180 600 / 600 Output: Urine Catheter Amount 350 / 350 750 / 750 400 / 400 Other: Meal Breakfast Percent of Meal Consumed 100% Weight 166 lb 8 oz Additional comments: Constitutional; Afebrile, cooperative, alert, not in distress. Eyes- No icterus, , No periorbital swelling Neck- Midline trachea, supple Respiratory system: Air Entry equal on both sides, No crackles or wheezing, no rhonchi. CVS- Rate rhythm regular, S1,S2 heard, no gallop, no rub. 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 Medical - DS: Data Labs on day of discharge: Labs from last 24 hours 09/12/17 09/12/17 09/12/17 04:05 04:05 00:20 WBC 4.9 RBC 3.64 L Hgb 12.3 Hct 36.6 MCV 100.7 H MCH 33.9 MCHC 33.7 RDW 13.9 Plt Count 139 L MPV 9.7 Gran % 55.5 Lymph % (Auto) 29.0 [place] % (Auto) 11.0 Eos % (Auto) 3.3 Baso % (Auto) 1.2 Gran # 2.7 Lymph # (Auto) 1.4 L [place] # (Auto) 0.5 Eos # (Auto) 0.2 Baso # (Auto) 0.1 Sodium 137 137 Potassium 4.5 4.8 Chloride 105 104 Carbon Dioxide 21 L 22 Anion Gap 11.0 11.0 BUN 32 H 35 H Creatinine 1.2 H 1.4 H GFR Calculation 41 34 Glucose 98 106 H Uric Acid 6.5 Calcium 9.6 9.6 Phosphorus 3.2 Magnesium 1.5 L Total Bilirubin 0.4 Direct Bilirubin < 0.2 GGT 39 H AST 18 ALT 9 Alkaline Phosphatase 46 Lactate Dehydrogenase 173 Total Protein 6.3 Albumin 3.6 Globulin 2.7 Albumin/Globulin Ratio 1.3 Triglycerides 223 H Preliminary micro results at discharge 09/11/17 08:30 Urine Culture - Preliminary Urine - [facility] Medical - DS: A/P - Patient/Caregiver Discharge Instructions Activity: increase activity as tolerated Diet: Consistent Carbohydrate Additional Instructions: Take antibiotics for 5 days cefuroxine 500mg two times per day. Follow up with PCP in 1 -2 weeks Follow up with Dr Thomas as scheduled Keep your self well hydrated. May resume consistent carbohydrate diet. Increase activity as tolerated. Go to the ER if worsening symptoms, chest pain, fever or any other acute concerning symptom. Prescriptions: Cefuroxime [Ceftin] 500 mg PO Q12 #10 tab - Follow up Plan Follow up with: Toro Escamilla MD [Primary Care Provider] - 09/16/17 8:45 am Elier Thomas MD [Physician] - 09/17/17 8:45 am Disposition: Home, Self-Care Prognosis: Fair Rehab Potential: Fair I certify that the patient requires SNF services: No Overall status at discharge: patient is progressing back to baseline Medical - DS: Qual - VTE Deep Vein Thrombosis/Pulmonary Embolism Present on Admission: No
== END 2017-09-12 13:55 | disposition home or self-care (01) | DRG 683 ==
LOC: ED 10:15 → ICU 15:54 → MEDSUR 09-11 17:36 → ICU 09-11 17:58 → MEDSUR 09-11 18:18
PROVIDERS: ADMIT Internal Medicine; ATTEND Internal Medicine